=== PATIENT | female | born 1975 | race American Indian/Alaskan Native ===

== ENCOUNTER 2016-07-19 19:50 | Emergency (ER) | payer OTHER ==
[2016-07-19 20:03] VITALS: BP 126/86
--- NOTE | 2016-07-19 21:05 | Emergency Department Report ---
Chief Complaint: Medical Clearance Stated Complaint: POSS HIGH BP/OUT OF MEDS Time Seen by Provider: 07/19/16 20:59 - HPI History of Present Illness: 41-year-old -French female comes in for medication refill. Patient reports that she just got insurance and the provider she was seen the Medicaid was no longer able to see her with her and that her insurance. Patient reports she took her last dose of medication last night. She reports she spent many hours looking for someone to refill her meds. Patient is concerned because she noticed that her head starts to get a little swimming when she is out of her meds. Patient is currently on amlodipine 10 mg daily atenolol 25 mg daily and hydrochlorothiazide 12.5. - Exam Vital Signs: Vital Signs 07/19/16 07/19/16 20:02 20:03 Temperature 98.2 F 98.2 F Pulse Rate 81 81 Respiratory 20 18 Rate Blood Pressure 126/86 Blood Pressure 126/86 [Right] O2 Sat by Pulse 100 100 Oximetry Physical Exam: [place] is alert and oriented 3. Cardiovascular S1-S2 regular rate and rhythm respiratory clear to auscultation bilateral lower extremities is no edema appreciated. MSE screening note: Focused history and physical exam performed. Due to findings the following was ordered: ED Disposition for MSE Clinical Impression: HTN (hypertension) Qualifiers: Hypertension type: unspecified secondary hypertension Qualified Code(s): I15.9 - Secondary hypertension, unspecified; I15 - Secondary hypertension Disposition: DISCHARGED TO HOME OR SELFCARE Is pt being admited?: No Does the pt Need Aspirin: No Condition: Stable Instructions: Hypertension (ED) Additional Instructions: Recommend patient to follow-up with a primary care provider. Patient verbalized understanding Prescriptions: amLODIPine [Norvasc] 10 mg PO DAILY #30 tablet Atenolol [Tenormin] 25 mg PO DAILY #30 tablet Hydrochlorothiazide [HCTZ] 12.5 mg PO QDAY #30 tablet Referrals: PRIMARY CARE, [Primary Care Provider] - 3-5 Days Forms: Work/School Release Form(ED)
== END 2016-07-19 21:27 | disposition home or self-care (01) ==
LOC: ED 19:50
DX: I15.9 Secondary hypertension, unspecified (principal); Z79.899 Other long term (current) drug therapy
CPT/HCPCS: 99282

== ENCOUNTER 2017-03-02 18:49 | Emergency (ER) | payer OTHER ==
[2017-03-02 20:00] LABS: Basophils % (Auto) 0.3 % (0.0-1.8); Eosinophils % (Auto) 0.3 % (0.0-4.3); Hematocrit 30.9 % (30.3-42.9); Hemoglobin 9.8 gm/dl (10.1-14.3); Mean Corpuscular HGB Conc 32 % (30-34); Mean Corpuscular Volume 73 fl (79-97); Platelet Count 333 K/mm3 (140-440); Red Blood Count 4.21 M/mm3 (3.65-5.03); Red Cell Distribution Width 18.6 % (13.2-15.2); White Blood Count 8.5 K/mm3 (4.5-11.0)
[2017-03-02 20:05] LABS: Mean Corpuscular Hemoglobin 23 pg (28-32)
[2017-03-02 20:09] LABS: Anion Gap 19 mmol/L; BUN/Creatinine Ratio 12; Blood Urea Nitrogen 12 mg/dL (7-17); Calcium 8.5 mg/dL (8.4-10.2); Carbon Dioxide 24 mmol/L (22-30); Chloride 103.3 mmol/L (98-107); Glucose 95 mg/dL (65-100); Potassium 3.8 mmol/L (3.6-5.0); Sodium 142 mmol/L (137-145)
--- NOTE | 2017-03-03 07:38 | Emergency Department Report ---
ED General Adult HPI - General Chief complaint: Arrhythmia/Palpitations Stated complaint: HEART SKIPPING Source: patient Mode of arrival: Ambulatory Limitations: No Limitations - History of Present Illness Initial comments: Patient described a variety of stressors over the last week. She went to a on Tuesday, she states she's not been eating drinking or sleeping well. While driving her car she felt her heart skipping. She did not attempt to take her pulse. She did not feel dizzy or presyncopal. She states that she does not ordinarily appreciate this. She states that it lasted for about 5 minutes. Patient stated that she took an extra amlodipine yesterday. On my exam, the patient is asymptomatic. She has an occasional ectopic beat only on the monitor they are not applied. They're probably superb ventricular ectopics. They're nonsustained. There is no coupling. I only saw 3 or 4 over the 5 minute. I was in the room. -: Gradual Severity scale (0 -10): 0 Consistency: other (painless) Associated Symptoms: denies other symptoms Treatments Prior to Arrival: other (spontaneously resolved) - Related Data Previous Rx's Medication Instructions Recorded Last Taken Type traMADol [Ultram 50 MG tab] 50 mg PO Q4HR PRN #20 tablet 01/10/15 Unknown Rx Atenolol [Tenormin] 25 mg PO DAILY #30 tablet 07/19/16 Unknown Rx Hydrochlorothiazide [HCTZ] 12.5 mg PO QDAY #30 tablet 07/19/16 Unknown Rx amLODIPine [Norvasc] 10 mg PO DAILY #30 tablet 07/19/16 Unknown Rx Allergies Allergy/AdvReac Type Severity Reaction Status Date / Time No Known Allergies Allergy Verified 01/09/15 21:53 ED Review of Systems ROS: Stated complaint: HEART SKIPPING Other details as noted in HPI Constitutional: denies: chills, fever Eyes: denies: eye pain, eye discharge, vision change ENT: denies: ear pain, throat pain Respiratory: denies: cough, shortness of breath, wheezing Cardiovascular: palpitations. denies: chest pain Endocrine: no symptoms reported Gastrointestinal: denies: abdominal pain, nausea, diarrhea Genitourinary: denies: urgency, dysuria, discharge Musculoskeletal: denies: back pain, joint swelling, arthralgia Skin: denies: rash, lesions Neurological: denies: headache, weakness, paresthesias Psychiatric: denies: anxiety, depression Hematological/Lymphatic: denies: easy bleeding, easy bruising ED Past Medical Hx - Past Medical History Previous Medical History?: Yes Hx Hypertension: Yes Additional medical history: anemia - Surgical History Past Surgical History?: Yes Additional Surgical History: c-sections x2. wisdom teeth. - Social History Smoking Status: Never Smoker Substance Use Type: None - Medications Home Medications: Home Medications Medication Instructions Recorded Confirmed Last Taken Type traMADol [Ultram 50 MG tab] 50 mg PO Q4HR PRN #20 tablet 01/10/15 Unknown Rx Atenolol [Tenormin] 25 mg PO DAILY #30 tablet 07/19/16 Unknown Rx Hydrochlorothiazide [HCTZ] 12.5 mg PO QDAY #30 tablet 07/19/16 Unknown Rx amLODIPine [Norvasc] 10 mg PO DAILY #30 tablet 07/19/16 Unknown Rx ED Physical Exam - General Limitations: No Limitations General appearance: alert, in no apparent distress - Head Head exam: Present: atraumatic, normocephalic - Eye Eye exam: Present: normal appearance. Absent: scleral icterus - ENT ENT exam: Present: mucous membranes moist - Neck Neck exam: Present: normal inspection - Respiratory Respiratory exam: Present: normal lung sounds bilaterally. Absent: respiratory distress - Cardiovascular Cardiovascular Exam: Present: regular rate, normal rhythm. Absent: systolic murmur, diastolic murmur, rubs, gallop - GI/Abdominal GI/Abdominal exam: Present: soft, normal bowel sounds. Absent: distended, tenderness, guarding, rebound, rigid - Extremities Exam Extremities exam: Present: normal inspection - Back Exam Back exam: Present: normal inspection - Neurological Exam Neurological exam: Present: alert, oriented X3, CN II-XII intact. Absent: motor sensory deficit - Psychiatric Psychiatric exam: Present: normal affect, normal mood - Skin Skin exam: Present: warm, dry, intact, normal color. Absent: rash ED Course Vital Signs 03/02/17 03/03/17 03/03/17 18:54 01:26 01:29 Temperature 98.8 F 98.1 F Pulse Rate 84 79 Respiratory 20 20 Rate Blood Pressure 120/83 121/73 Blood Pressure [Left] O2 Sat by Pulse 97 100 Oximetry 03/03/17 03/03/17 06:03 08:22 Temperature 98.2 F Pulse Rate 73 73 Respiratory 18 18 Rate Blood Pressure Blood Pressure 104/60 120/63 [Left] O2 Sat by Pulse 99 100 Oximetry - Reevaluation(s) Reevaluation #1: Patient's blood pressure is around 100 systolic. She is discouraged from taking extra amlodipine. She is directed to check her blood pressure again before taking amlodipine the next dose tonight. She should follow up with her primary care provider. She is referred to cardiology should she be bothered by further palpitations. 03/03/17 08:58 ED Medical Decision Making - Lab Data Result diagrams: 03/02/17 19:20 03/02/17 19:20 Laboratory Results - last 24 hr 03/02/17 03/02/17 19:20 19:20 WBC 8.5 RBC 4.21 Hgb 9.8 L Hct 30.9 MCV 73 L MCH 23 L MCHC 32 RDW 18.6 H Plt Count 333 Lymph % (Auto) 12.8 L [place] % (Auto) 8.1 H Eos % (Auto) 0.3 Baso % (Auto) 0.3 Lymph # 1.1 L [place] # 0.7 Eos # 0.0 Baso # 0.0 Seg Neutrophils % 78.5 H Seg Neutrophils # 6.7 Sodium 142 Potassium 3.8 Chloride 103.3 Carbon Dioxide 24 Anion Gap 19 BUN 12 Creatinine 1.0 Estimated GFR > 60 BUN/Creatinine Ratio 12 Glucose 95 Calcium 8.5 Troponin T < 0.010 - EKG Data -: EKG Interpreted by Me EKG shows normal: sinus rhythm, axis, intervals, QRS complexes, ST-T waves Rate: normal - EKG Data Interpretation: normal EKG, other (QTC is normal) Critical care attestation.: If time is entered above; I have spent that time in minutes in the direct care of this critically ill patient, excluding procedure time. ED Disposition Clinical Impression: Palpitations Disposition: DC-01 TO HOME OR SELFCARE Is pt being admited?: No Does the pt Need Aspirin: No Condition: Stable Instructions: Palpitations (ED) Additional Instructions: See agricultural scientist any persistent symptoms. Return to the emergency department if he had palpitations associated with weakness dizziness or refill likely going to pass out. Also return if there reasonably frequent and we can check again. It would be helpful to get more rest, avoid caffeine and alcohol and excessive stress. Referrals: PRIMARY CARE, [Primary Care Provider] - 3-5 Days ILSA COX MD [Staff Physician] - 3-5 Days Time of Disposition: 09:00
[2017-03-03 08:23] VITALS: BP 120/63
== END 2017-03-03 10:28 | disposition home or self-care (01) ==
LOC: ED 18:49
DX: R00.2 Palpitations (principal); I10 Essential (primary) hypertension
CPT/HCPCS: 36415; 80048; 84484; 85025; 93005; 93010

== ENCOUNTER 2019-01-03 10:20 | Emergency (ER) | payer OTHER ==
[2019-01-03 12:06] LABS: Hematocrit 31.7 % (30.3-42.9); Mean Corpuscular HGB Conc 32 % (30-34); Mean Corpuscular Volume 76 fl (79-97); Platelet Count 421 K/mm3 (140-440); Red Blood Count 4.19 M/mm3 (3.65-5.03); Red Cell Distribution Width 17.9 % (13.2-15.2)
[2019-01-03 12:12] LABS: Bilirubin,Urine NEG (Negative); Blood,Urine LG (Negative); Color,Urine Straw (Yellow); Protein,Urine <15 mg/dL mg/dL (Negative); Urobilinogen,Urine < 2.0 mg/dL (<2.0)
[2019-01-03 12:14] LABS: HCG Qualitative,Urine Negative (Negative)
[2019-01-03 12:21] LABS: Alanine Aminotransferase 10 units/L (7-56); Albumin 3.7 g/dL (3.9-5); BUN/Creatinine Ratio 11; Blood Urea Nitrogen 10 mg/dL (7-17); Calcium 8.5 mg/dL (8.4-10.2); Hemolysis Index 1
[2019-01-03 12:24] LABS: Bilirubin,Direct < 0.2 mg/dL (0-0.2)
--- NOTE | 2019-01-03 13:48 | Emergency Department Report ---
ED General Adult HPI - General Chief complaint: Hyperglycemia Stated complaint: HYPERGLYCEMIA Time Seen by Provider: 01/03/19 11:15 Source: patient, EMS Mode of arrival: Stretcher Limitations: No Limitations - History of Present Illness Initial comments: 43-year-old female states that she discontinued her atenolol because her blood pressure was running somewhat low. [place] somewhat weak and became sweaty at work today. She did not have a fever prior. She states that she's been under a lot of stress because of the recent of her ex-. 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 Her vital signs were essentially stable. She had not checked that was found to be over 200 by EMS. Denied pain. She denies shortness of breath. By the time she arrived at this facility, she was essentially asymptomatic. She stated that in the past when her blood pressure is just 120 she has previously felt somewhat weak. -: Gradual, minutes(s) Worsens with: none Associated Symptoms: denies other symptoms, weakness, other (sweating) - Related Data Home Medications Medication Instructions Recorded Confirmed Last Taken Lisinopril [Zestril TAB] 10 mg PO QDAY 01/03/19 01/03/19 Unknown Previous Rx's Medication Instructions Recorded Last Taken Type Atenolol [Tenormin] 25 mg PO DAILY #30 tablet 07/19/16 Unknown Rx amLODIPine [Norvasc] 10 mg PO DAILY #30 tablet 07/19/16 Unknown Rx Ferrous Gluconate [Ferrous 324 mg PO TID #20 tablet 01/03/19 Unknown Rx Gluconate 324 MG] Allergies Allergy/AdvReac Type Severity Reaction Status Date / Time No Known Allergies Allergy Verified 01/09/15 21:53 ED Review of Systems ROS: Stated complaint: HYPERGLYCEMIA Other details as noted in HPI Constitutional: see HPI, weakness. denies: chills, fever Eyes: denies: eye pain, eye discharge, vision change ENT: denies: ear pain, throat pain Respiratory: denies: cough, shortness of breath, wheezing Cardiovascular: denies: chest pain, palpitations Endocrine: no symptoms reported Gastrointestinal: denies: abdominal pain, nausea, diarrhea Genitourinary: other (menses yesterday). denies: urgency, dysuria, discharge Musculoskeletal: denies: back pain, joint swelling, arthralgia Skin: denies: rash, lesions Neurological: denies: headache, weakness, paresthesias Psychiatric: denies: anxiety, depression Hematological/Lymphatic: denies: easy bleeding, easy bruising ED Past Medical Hx - Past Medical History Hx Hypertension: Yes Additional medical history: anemia - Surgical History Past Surgical History?: Yes Additional Surgical History: c-sections x2. wisdom teeth. - Social History Smoking Status: Never Smoker Substance Use Type: None - Medications Home Medications: Home Medications Medication Instructions Recorded Confirmed Last Taken Type Atenolol [Tenormin] 25 mg PO DAILY #30 tablet 07/19/16 01/03/19 Unknown Rx amLODIPine [Norvasc] 10 mg PO DAILY #30 tablet 07/19/16 01/03/19 Unknown Rx Ferrous Gluconate [Ferrous 324 mg PO TID #20 tablet 01/03/19 Unknown Rx Gluconate 324 MG] Lisinopril [Zestril TAB] 10 mg PO QDAY 01/03/19 01/03/19 Unknown History ED Physical Exam - General Limitations: No Limitations General appearance: alert, in no apparent distress - Head Head exam: Present: atraumatic, normocephalic - Eye Eye exam: Present: normal appearance. Absent: scleral icterus - ENT ENT exam: Present: mucous membranes moist - Neck Neck exam: Present: normal inspection. Absent: tenderness, meningismus - Respiratory Respiratory exam: Present: normal lung sounds bilaterally. Absent: respiratory distress - Cardiovascular Cardiovascular Exam: Present: regular rate, normal rhythm. Absent: systolic murmur, diastolic murmur, rubs, gallop - GI/Abdominal GI/Abdominal exam: Present: soft, normal bowel sounds. Absent: distended, tenderness, guarding, rebound, rigid - Extremities Exam Extremities exam: Present: normal inspection, normal capillary refill. Absent: pedal edema, joint swelling, calf tenderness - Back Exam Back exam: Present: normal inspection - Neurological Exam Neurological exam: Present: alert, oriented X3, CN II-XII intact. Absent: motor sensory deficit - Psychiatric Psychiatric exam: Present: normal affect, normal mood - Skin Skin exam: Present: warm, dry, intact, normal color. Absent: rash ED Course Vital Signs 01/03/19 01/03/19 10:36 13:03 Temperature 97.8 F Pulse Rate 64 88 Respiratory 16 16 Rate Blood Pressure 114/70 120/67 [Left] O2 Sat by Pulse 100 100 Oximetry - Reevaluation(s) Reevaluation #1: Patient remained asymptomatic here. Her blood pressure remains stable first 2 values were somewhat low normal. She does not require any intervention. The last systolic I saw was 139. 01/03/19 15:30 ED Medical Decision Making - Lab Data Result diagrams: 01/03/19 11:48 01/03/19 11:48 Laboratory Results - last 24 hr 01/03/19 01/03/19 01/03/19 10:44 11:27 11:48 WBC 13.2 H RBC 4.19 Hgb 10.0 L Hct 31.7 MCV 76 L MCH 24 L MCHC 32 RDW 17.9 H Plt Count 421 Lymph % (Auto) Cafe Server [place] % (Auto) Cafe Server Eos % (Auto) Cafe Server Baso % (Auto) Cafe Server Lymph # Cafe Server [place] # Cafe Server Eos # Cafe Server Baso # Cafe Server Seg Neutrophils % Cafe Server Seg Neutrophils # Cafe Server Sodium Potassium Chloride Carbon Dioxide Anion Gap BUN Creatinine Estimated GFR BUN/Creatinine Ratio Glucose POC Glucose 177 H Calcium Total Bilirubin Direct Bilirubin Indirect Bilirubin AST ALT Alkaline Phosphatase Troponin T Total Protein Albumin Albumin/Globulin Ratio TSH Free T4 Urine Color Straw Urine Turbidity Clear Urine pH 6.0 Ur Specific [place] 1.011 Urine Protein <15 mg/dl Urine Glucose (UA) 50 Urine Ketones 20 Urine Blood Lg Urine Nitrite Neg Urine Bilirubin Neg Urine Urobilinogen < 2.0 Ur Leukocyte Esterase Neg Urine WBC (Auto) 2.0 Urine RBC (Auto) 35.0 U Epithel Cells (Auto) 1.0 Urine HCG, Qual Negative 01/03/19 01/03/19 01/03/19 11:48 11:48 11:48 WBC RBC Hgb Hct MCV MCH MCHC RDW Plt Count Lymph % (Auto) [place] % (Auto) Eos % (Auto) Baso % (Auto) Lymph # [place] # Eos # Baso # Seg Neutrophils % Seg Neutrophils # Sodium 142 Potassium 3.5 L Chloride 106.9 Carbon Dioxide 23 Anion Gap 16 BUN 10 Creatinine 0.9 Estimated GFR > 60 BUN/Creatinine Ratio 11 Glucose 126 H POC Glucose Calcium 8.5 Total Bilirubin 0.20 Direct Bilirubin < 0.2 Indirect Bilirubin 0.0 AST 13 ALT 10 Alkaline Phosphatase 55 Troponin T < 0.010 Total Protein 7.3 Albumin 3.7 L Albumin/Globulin Ratio 1.0 TSH 1.200 Free T4 1.00 Urine Color Urine Turbidity Urine pH Ur Specific [place] Urine Protein Urine Glucose (UA) Urine Ketones Urine Blood Urine Nitrite Urine Bilirubin Urine Urobilinogen Ur Leukocyte Esterase Urine WBC (Auto) Urine RBC (Auto) U Epithel Cells (Auto) Urine HCG, Qual - EKG Data -: EKG Interpreted by Me EKG shows normal: sinus rhythm, axis, intervals, QRS complexes, ST-T waves Rate: normal - EKG Data Interpretation: no acute changes Critical care attestation.: If time is entered above; I have spent that time in minutes in the direct care of this critically ill patient, excluding procedure time. ED Disposition Clinical Impression: Weakness Anemia, iron deficiency Qualifiers: Iron deficiency anemia type: unspecified iron deficiency Qualified Code(s): D50.9 - Iron deficiency anemia, unspecified Disposition: TO HOME OR SELFCARE Is pt being admited?: No Does the pt Need Aspirin: No Condition: Stable Instructions: Iron Rich Diet (ED) Additional Instructions: Would recommend supplemental iron and follow-up on your mild anemia. Prescriptions: Ferrous Gluconate [Ferrous Gluconate 324 MG] 324 mg PO TID #20 tablet Referrals: DARIAN SNOW MD [Primary Care Provider] - 3-5 Days usual, primary care [Other] - 2-3 Days Time of Disposition: 15:33
[2019-01-03 14:17] LABS: Basophils % (Manual) 0 % (0.0-1.8); Eosinophils % (Manual) 0 % (0.0-4.3); Total Cells Counted 100
[2019-01-03 14:18] LABS: Anisocytosis Few; Hypochromasia Few; Large Platelets Rare; Ovalocytes Few; Platelet Estimate Consistent w Auto; Poikilocytosis Few
[2019-01-03 15:55] VITALS: BP 132/78
== END 2019-01-03 15:55 | disposition home or self-care (01) ==
LOC: ED 10:20
DX: D50.9 Iron deficiency anemia, unspecified (principal); R53.1 Weakness; I10 Essential (primary) hypertension; Z98.890 Other specified postprocedural states; Z79.899 Other long term (current) drug therapy
CPT/HCPCS: 36415; 80048; 80076; 81001; 81025; 82962; 84439; 84443; 84484; 85007; 85025; 93005; 93010; 99284